=== PATIENT | female | born 1970 | race African-American/Black ===

== ENCOUNTER 2021-04-13 13:28 | Emergency (ER) | payer MEDICARE, MEDICAID ==
[~2021-04-13] VITALS: Ht 172.7 cm; Wt 79.8 kg
[2021-04-13 14:50] VITALS: BP 135/54
== END 2021-04-13 14:51 | disposition home or self-care (01) ==
LOC: M.ERS 13:28
DX: Z20.822 Contact with and (suspected) exposure to COVID-19 (principal)